=== PATIENT | male | born 1980 | race Hispanic/Latino ===

== ENCOUNTER → 2020-03-31 | Day surgery (SDC) | payer OTHER ==
[~2020-03-31] MED LIST: FENTANYL CITRATE/PF 100MCG/2 ML INJ ONE; MIDAZOLAM HCL 5 MG/ML VIAL ONE
[2020-03-31 10:45] VITALS: BP 121/84
== END | disposition home or self-care (01) ==
LOC: OR 06:26
PROVIDERS: ATTEND Internal Medicine Gastroenterology
DX: K29.70 Gastritis, unspecified, without bleeding (principal); D12.0 Benign neoplasm of cecum; K29.80 Duodenitis without bleeding; K20.90 Esophagitis, unspecified without bleeding; K21.9 Gastro-esophageal reflux disease without esophagitis; K59.00 Constipation, unspecified; K62.5 Hemorrhage of anus and rectum; K64.8 Other hemorrhoids; T78.40XA Allergy, unspecified, initial encounter; X58.XXXA Exposure to other specified factors, initial encounter; Z68.34 Body mass index [BMI] 34.0-34.9, adult; Z87.891 Personal history of nicotine dependence
CPT/HCPCS: 43239; 43450; 45385; 93005; J2250; J3010; U0002; 45378; 45384